=== PATIENT | female | born 1985 | race Caucasian/White ===

== ENCOUNTER 2018-01-30 15:07 | Inpatient (IN) | payer OTHER ==
[~2018-01-30] VITALS: Ht 167.6 cm; Wt 71.7 kg
[2018-01-30 15:49] LABS: ABSOLUTE BASOPHIL COUNT 0 /CUMM (0.0-0.2); ABSOLUTE EOSINOPHIL COUNT 0.1 /CUMM (0.0-0.7); ABSOLUTE LYMPH COUNT 1.7 /CUMM (1.2-3.4); ABSOLUTE MONOCYTE COUNT 0.5 /CUMM (0.10-0.60); BASOPHIL % 0.2 % (0.0-2.0); HEMATOCRIT 33.7 % (37-47); MEAN CORPUSCULAR HGB CONC 33.7 G/DL (33.0-37.0); MEAN PLATELET VOLUME 9.9 FL (7.4-10.4); PLATELET COUNT 197 /CUMM (130-400); RED BLOOD CELL CT 3.91 /CUMM (4.20-5.40); WHITE BLOOD CELL COUNT 9.3 /CUMM (4.8-10.8)
--- NOTE | 2018-01-30 17:36 | History & Physical Pre-Op ---
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 care complete and remarkable for positive GBS colonization. Allergies/Medications Allergies: Coded Allergies: No Known Allergies (01/30/18) Past History Medical History Isolation History: Standard Surgical History Pertinent Surgical History: none Past Family/Social History Psychosocial History Smoking Status: Never Smoked Review of Systems Review of Systems Constitutional: Reports: no symptoms. EENTM: Reports: no symptoms. Cardiovascular: Reports: no symptoms. Respiratory: Reports: no symptoms. GI: Reports: no symptoms. Genitourinary: Reports: no symptoms. Musculoskeletal: Reports: no symptoms. Skin: Reports: no symptoms. Neurological/Psychological: Reports: no symptoms. Hematologic/Endocrine: Reports: no symptoms. Immunologic/Allergic: Reports: no symptoms. All Other Systems: Reviewed and Negative Exam & Diagnostic Data Last 24 Hrs of Vital Signs/I&O Intake & Output / 1600 06/06 0800 06/ 0000 Intake Total Output Total Balance Patient 158 lb Weight Physical Exam: HEENT: NCAT chest: CTA CV: nl S1S2 Abd: gravid, cephalic, EFW 7 Cx: 4/90/-1 Ext: no c/c/e Neuro: nonfocal Assessment/Plan Assessment/Plan: PROM at 39 weeks IV PCN As Ranked By This Provider Problem List: 1.
[2018-01-30] MEDS ORDERED: IBUPROFEN800 M1 PO (20:35)
[2018-01-30] MEDS ORDERED: PERCOCET 5-3251 EACH PO (20:35)
--- NOTE | 2018-01-30 20:39 | Labor & Delivery Summary ---
Delivery Summary Vaginal Delivery: Vaginal: vertex Episiotomy/Lacerations: Episiotomy/Lacerations: none Placenta: Placenta: spontanteous, normal, 3 vessel Anesthesia: epidural Baby's Weight: 6/10 Apgars - 1 Min: 9 Apgars - 5 Min: 9
[2018-01-31 08:09] LABS: ABSOLUTE BASOPHIL COUNT 0 /CUMM (0.0-0.2); ABSOLUTE EOSINOPHIL COUNT 0 /CUMM (0.0-0.7); ABSOLUTE GRANULOCYTE CT 9.6 /CUMM (1.4-6.5); ABSOLUTE LYMPH COUNT 1.8 /CUMM (1.2-3.4); ABSOLUTE MONOCYTE COUNT 0.6 /CUMM (0.10-0.60); BASOPHIL % 0.4 % (0.0-2.0); EOSINOPHIL % 0.3 % (0-5); GRANULOCYTE % 79.5 % (42.2-75.2); HEMATOCRIT 35.7 % (37-47); MEAN CORPUSCULAR HGB 28.7 PG (27.0-31.0); MEAN CORPUSCULAR HGB CONC 32.9 G/DL (33.0-37.0); MEAN CORPUSCULAR VOLUME 87.4 FL (81.0-99.0); MEAN PLATELET VOLUME 10.3 FL (7.4-10.4); PLATELET COUNT 181 /CUMM (130-400); RBC DISTRIBUTION WIDTH 14.1 % (11.5-14.5); RED BLOOD CELL CT 4.09 /CUMM (4.20-5.40); WHITE BLOOD CELL COUNT 12.1 /CUMM (4.8-10.8)
--- NOTE | 2018-01-31 20:15 | PN- Post Delivery/GYN ---
Subjective Subjective: Pt c/o severe neck andshoulder pain Review of Systems: as above Objective Last 24 Hrs of Vital Signs/I&O vss Physical Exam: ff ext nt Assessment/Plan Assessment/Plan s/p ppd1 with sinal MARX Anest. to see and offer blood patch discharge tomorrrow Problem List: 1.
== END 2018-02-01 08:55 | DRG 775 ==
LOC: CBCO 15:07 → GNO 15:25
PROVIDERS: Obstetrics & Gynecology
PROC: 10E0XZZ Delivery of Products of Conception, External Approach (ICD-10-PCS; principal; 2018-01-30)
DX: O99.824 Streptococcus B carrier state complicating childbirth (principal); Z3A.39 39 weeks gestation of pregnancy; Z37.0 Single live birth
CPT/HCPCS: GNOS; 81001; 87086; J1885; J2405; J7120